=== PATIENT | female | born 1960 | race Caucasian/White ===

== ENCOUNTER 2017-12-04 08:13 | Inpatient (IN) | payer OTHER ==
[~2017-12-04] VITALS: Ht 165.1 cm; Wt 78.1 kg
[~2017-12-04 08:13] MED LIST: AMLODIPINE BESY10 MG PO; ATENOLOL100 MG PO; ATORVASTATIN CA80 MG PO; CALCIUM600 M1 PO; CIPRO250 MG PO; CLONAZEPAM1 MG PO; DESYREL100 MG PO; DULOXETINE HCL60 MG PO; FLONASE SENSIM9.9 ML BOTH NARES; FLUTICASONE PRO60 ML TP; FUROSEMIDE20 MG PO; GABAPENTIN100 MG PO; HUMALOG MI100 UNIT/6 SC; KEFLEX500 MG PO; LAMOTRIGINE150 MG PO; LEVOTHYROXINE50 MCG PO; LISINOPRIL20 MG PO; LO-DOSE ASPIRIN81 M2 PO; REFRESH PLUS1 EACH BOTH EYES; ROXICODONE5 MG PO; ZYRTEC10 M2 PO
[2017-12-04 08:59] LABS: HEMATOCRIT 33.7 % (36.0-46.0); HEMOGLOBIN 11.4 G/DL (11.9-15.5); MCH 32.6 PG (29.0-34.0); MCHC 33.8 G/DL (30.0-36.0); MCV 96.3 FL (83-99); PLATELET COUNT 228 K/uL (156-360); RBC DIS.WIDTH-CV 12.6 % (11.8-14.6); RBC DIS.WIDTH-SD 44.4 % (39-53); WHITE BLOOD COUNT 13.8 K/uL (4.1-10.2)
[2017-12-04 09:07] LABS: APPEARANCE SL.HAZY ((CLEAR)); BILIRUBIN NEGATIVE; BLOOD MODERATE; COLOR YELLOW ((YELLOW)); GLUCOSE (STRIP) >=500; KETONES NEGATIVE; LEUKOCYTES NEGATIVE; NITRITE NEGATIVE; PROTEIN (STRIP) >=500; SPECIFIC GRAVITY 1.007 (1.000-1.030); UROBILINOGEN 0.2 MG/DL (0.2-1.0)
[2017-12-04 09:10] LABS: ALBUMIN 3.1 g/dL (3.2-4.8); CHLORIDE 103 mEq/L (99-109); POTASSIUM 4.9 mEq/L (3.7-5.4); SODIUM 137 mEq/L (136-147)
[2017-12-04 09:12] LABS: TOTAL PROTEIN 6.9 g/dL (6.4-8.3)
[2017-12-04 09:14] LABS: TOTAL BILIRUBIN 0.3 mg/dL (0.0-1.0)
[2017-12-04 09:14] LABS: BACTERIA 3+ /HPF; EPITHELIAL CELLS NONE SEEN /HPF; MUCUS TRACE /LPF; RED BLOOD CELLS 0-5 /HPF (0-5); UCUL ADDED? YES; WHITE BLOOD CELLS NONE SEEN /HPF (0-5)
[2017-12-04 09:16] LABS: ALKALINE PHOSPHATASE 111 IU/L (3-129); CREATININE 5.8 mg/dL (0.6-1.3); GFR ESTIMATE (CALCULATED) 8 mL/min/
[2017-12-04 09:17] LABS: GLUCOSE 234 mg/dL (70-99); UREA NITROGEN (BUN) 71 mg/dL (9-23)
[2017-12-04 09:18] LABS: AST (GOT) 20 IU/L (2-34)
[2017-12-04 09:19] LABS: ALT (GPT) 16 IU/L (3-49)
[2017-12-04 09:20] LABS: TROP-I INTERPRETATION NEGATIVE; TROPONIN-I 0.05 ng/mL (0.0-0.30)
[2017-12-04 10:43] LABS: BASE EXCESS -1.6 mEq/L (-3 to +3); BICARBONATE 24.7 mEq/L (22-26); CARBOXY HGB 1.9 % (0-5); METHEMOGLOBIN 1.5 % (0-1.5); PCO2 48 mm Hg (35-45); PO2 69 mm Hg (80-100); pH 7.32 (7.35-7.45)
[2017-12-04 10:44] LABS: COMMENTS - BLOOD GASES A+C+; DEVICE NC; O2 FLOW 6 L/MIN; SITE LR; TOTAL RESP RATE 12 resp/min
[2017-12-04] MEDS ORDERED: SYMBICORT60 INHALAT IH (11:10)
[2017-12-04] MEDS ORDERED: HUMALOG MI100 UNIT/5 SC ×2 (11:12→11:13)
[2017-12-04 13:18] LABS: HEPATITIS B SURFACE ANTIGEN Nonreactive
[2017-12-04 13:19] LABS: HEPATITIS C ANTIBODY Nonreactive
[2017-12-04 13:20] LABS: ANTI-HEPATITIS B CORE (TOTAL) Nonreactive
[2017-12-04 13:49] LABS: HEPATITIS B SURFACE ANTIBODY EQUIVOCAL
[2017-12-04 15:22] LABS: ANTI-HEPATITIS A VIRUS (IGM) Nonreactive
[2017-12-04 15:23] LABS: ANTI-HEPATITIS B CORE (IGM) Nonreactive
[2017-12-04 17:24] VITALS: BP 129/81
[2017-12-04 19:20] VITALS: BP 181/79
[2017-12-04 23:41] VITALS: BP 158/72
[2017-12-05 03:10] VITALS: BP 162/75
[2017-12-05 04:39] LABS: BASOPHIL (%) 0.4 % (0-1); EOSINOPHIL (%) 1.8 % (0-5); EOSINOPHIL COUNT 0.2 K/uL (0-0.3); HEMOGLOBIN 10.2 G/DL (11.9-15.5); IMMATURE GRANULOCYTE (%) 0.4 % (0.0-0.7); LYMPHOCYTE (%) 14.6 % (15-42); LYMPHOCYTE COUNT 1.5 K/uL (1.0-2.8); MCH 32.5 PG (29.0-34.0); MCV 95.5 FL (83-99); MONOCYTE (%) 7.7 % (3-12); MONOCYTE COUNT 0.8 K/uL (0-0.8); NEUTROPHIL (%) 75.1 % (45-76); NEUTROPHIL COUNT 7.6 K/uL (1.8-6.4); PLATELET COUNT 217 K/uL (156-360); RBC DIS.WIDTH-CV 12.6 % (11.8-14.6); RBC DIS.WIDTH-SD 43.8 % (39-53); RED BLOOD COUNT 3.14 M/uL (3.80-5.20); WHITE BLOOD COUNT 10.1 K/uL (4.1-10.2)
[2017-12-05 05:07] LABS: CHLORIDE 102 mEq/L (99-109); POTASSIUM 4.5 mEq/L (3.7-5.4); SODIUM 138 mEq/L (136-147)
[2017-12-05 05:08] LABS: MAGNESIUM 1.9 mg/dL (1.3-2.7)
[2017-12-05 05:10] LABS: GLUCOSE 167 mg/dL (70-99)
[2017-12-05 05:13] LABS: GFR ESTIMATE (CALCULATED) 12 mL/min/; PHOSPHORUS 3.8 mg/dL (2.5-4.9)
[2017-12-05 05:14] LABS: UREA NITROGEN (BUN) 45 mg/dL (9-23)
[2017-12-05 05:16] LABS: CREATININE 4.2 mg/dL (0.6-1.3)
[2017-12-05 11:08] VITALS: BP 145/67
[2017-12-05 16:00] VITALS: BP 188/84
[2017-12-05 20:00] VITALS: BP 144/74
[2017-12-06] VITALS (9 sets, daily range): BP systolic 130–180; BP diastolic 69–81
[2017-12-06 06:05] LABS: BASOPHIL (%) 0.6 % (0-1); BASOPHIL COUNT 0.1 K/uL (0-0.1); EOSINOPHIL (%) 3.2 % (0-5); EOSINOPHIL COUNT 0.3 K/uL (0-0.3); HEMOGLOBIN 11.5 G/DL (11.9-15.5); IMMATURE GRANULOCYTE (%) 0.4 % (0.0-0.7); LYMPHOCYTE (%) 18.5 % (15-42); LYMPHOCYTE COUNT 1.5 K/uL (1.0-2.8); MCH 31.5 PG (29.0-34.0); MCHC 32.9 G/DL (30.0-36.0); MCV 95.9 FL (83-99); MONOCYTE (%) 9.4 % (3-12); MONOCYTE COUNT 0.8 K/uL (0-0.8); NEUTROPHIL (%) 67.9 % (45-76); NEUTROPHIL COUNT 5.5 K/uL (1.8-6.4); PLATELET COUNT 185 K/uL (156-360); RBC DIS.WIDTH-CV 12.6 % (11.8-14.6); RBC DIS.WIDTH-SD 44.5 % (39-53); RED BLOOD COUNT 3.65 M/uL (3.80-5.20); WHITE BLOOD COUNT 8.1 K/uL (4.1-10.2)
[2017-12-06 06:14] LABS: CHLORIDE 101 MEQ/L (99-109); CREATININE 3.5 MG/DL (0.6-1.3); GFR ESTIMATE (CALCULATED) 14 mL/min/; PHOSPHORUS 4.2 mg/dL (2.5-4.9); POTASSIUM 3.6 MEQ/L (3.7-5.4); SODIUM 139 MEQ/L (136-147); UREA NITROGEN (BUN) 27 mg/dL (9-23)
[2017-12-06 06:20] LABS: GLUCOSE 89 mg/dL (70-99)
[2017-12-06 06:31] LABS: ALBUMIN 3.1 G/DL (3.2-4.8); ALKALINE PHOSPHATASE 90 IU/L (3-129); ALT (GPT) 7 IU/L (3-49); AST (GOT) 19 IU/L (2-34); CHLORIDE 100 MEQ/L (99-109); CREATININE 3.6 MG/DL (0.6-1.3); GFR ESTIMATE (CALCULATED) 14 mL/min/; GLUCOSE 86 mg/dL (70-99); POTASSIUM 3.9 MEQ/L (3.7-5.4); SODIUM 139 MEQ/L (136-147); TOTAL BILIRUBIN 0.3 MG/DL (0.0-1.0); TOTAL PROTEIN 6.6 G/DL (6.4-8.3); UREA NITROGEN (BUN) 26 mg/dL (9-23)
[2017-12-06 12:59] LABS: HEMOGLOBIN A1c (GLYCOHEMOGLOB) 7.6 % (Below 5.7)
[2017-12-07 05:21] VITALS: BP 106/51
[2017-12-07 05:45] LABS: BASOPHIL (%) 0.4 % (0-1); EOSINOPHIL (%) 2.7 % (0-5); EOSINOPHIL COUNT 0.2 K/uL (0-0.3); HEMATOCRIT 32.6 % (36.0-46.0); HEMOGLOBIN 10.7 G/DL (11.9-15.5); IMMATURE GRANULOCYTE (%) 0.4 % (0.0-0.7); LYMPHOCYTE (%) 22.2 % (15-42); LYMPHOCYTE COUNT 1.6 K/uL (1.0-2.8); MCH 31.7 PG (29.0-34.0); MCHC 32.8 G/DL (30.0-36.0); MCV 96.4 FL (83-99); MONOCYTE (%) 8.6 % (3-12); MONOCYTE COUNT 0.6 K/uL (0-0.8); NEUTROPHIL (%) 65.7 % (45-76); NEUTROPHIL COUNT 4.9 K/uL (1.8-6.4); PLATELET COUNT 191 K/uL (156-360); RBC DIS.WIDTH-CV 12.9 % (11.8-14.6); RBC DIS.WIDTH-SD 45.9 % (39-53); RED BLOOD COUNT 3.38 M/uL (3.80-5.20); WHITE BLOOD COUNT 7.4 K/uL (4.1-10.2)
[2017-12-07 06:18] LABS: ALBUMIN 2.8 G/DL (3.2-4.8); ALKALINE PHOSPHATASE 72 IU/L (3-129); ALT (GPT) 6 IU/L (3-49); AST (GOT) 15 IU/L (2-34); CHLORIDE 101 MEQ/L (99-109); CREATININE 4.2 MG/DL (0.6-1.3); GFR ESTIMATE (CALCULATED) 12 mL/min/; GLUCOSE 145 mg/dL (70-99); POTASSIUM 3.4 MEQ/L (3.7-5.4); SODIUM 139 MEQ/L (136-147); TOTAL BILIRUBIN 0.3 MG/DL (0.0-1.0); TOTAL PROTEIN 6.3 G/DL (6.4-8.3); UREA NITROGEN (BUN) 30 mg/dL (9-23)
[2017-12-07 07:20] VITALS: BP 131/63
[2017-12-07 15:00] VITALS: BP 126/76
[2017-12-07 20:33] VITALS: BP 114/54
[2017-12-07 23:28] VITALS: BP 106/53
[2017-12-08 04:55] VITALS: BP 109/55
[2017-12-08 05:59] LABS: CHLORIDE 98 MEQ/L (99-109); CREATININE 3.6 MG/DL (0.6-1.3); GFR ESTIMATE (CALCULATED) 14 mL/min/; GLUCOSE 168 mg/dL (70-99); PHOSPHORUS 4.6 mg/dL (2.5-4.9); POTASSIUM 3.9 MEQ/L (3.7-5.4); SODIUM 134 MEQ/L (136-147); UREA NITROGEN (BUN) 20 mg/dL (9-23)
[2017-12-08 07:10] VITALS: BP 132/62
[2017-12-08 11:55] VITALS: BP 129/61
[2017-12-08 15:10] VITALS: BP 135/72
[2017-12-08 20:31] VITALS: BP 159/77
[2017-12-09 00:16] VITALS: BP 149/67
[2017-12-09 04:59] VITALS: BP 150/69
[2017-12-09 05:18] LABS: BASOPHIL (%) 0.2 % (0-1); EOSINOPHIL (%) 0.1 % (0-5); HEMATOCRIT 32.1 % (36.0-46.0); HEMOGLOBIN 10.6 G/DL (11.9-15.5); IMMATURE GRANULOCYTE (%) 0.6 % (0.0-0.7); LYMPHOCYTE (%) 9.2 % (15-42); LYMPHOCYTE COUNT 0.9 K/uL (1.0-2.8); MCH 31.1 PG (29.0-34.0); MCV 94.1 FL (83-99); MONOCYTE COUNT 0.4 K/uL (0-0.8); NEUTROPHIL (%) 85.9 % (45-76); NEUTROPHIL COUNT 8.7 K/uL (1.8-6.4); PLATELET COUNT 244 K/uL (156-360); RBC DIS.WIDTH-CV 12.2 % (11.8-14.6); RBC DIS.WIDTH-SD 42.3 % (39-53); RED BLOOD COUNT 3.41 M/uL (3.80-5.20); WHITE BLOOD COUNT 10.2 K/uL (4.1-10.2)
[2017-12-09 05:48] LABS: ALKALINE PHOSPHATASE 93 IU/L (3-129); CHLORIDE 94 MEQ/L (99-109); SODIUM 129 MEQ/L (136-147); TOTAL BILIRUBIN 0.3 MG/DL (0.0-1.0); TOTAL PROTEIN 6.1 G/DL (6.4-8.3)
[2017-12-09 05:50] LABS: ALT (GPT) 17 IU/L (3-49); AST (GOT) 24 IU/L (2-34); CREATININE 4.3 MG/DL (0.6-1.3); GFR ESTIMATE (CALCULATED) 11 mL/min/; GLUCOSE 255 mg/dL (70-99); POTASSIUM 5.2 MEQ/L (3.7-5.4); UREA NITROGEN (BUN) 34 mg/dL (9-23)
[2017-12-09 08:38] VITALS: BP 142/64
[2017-12-09 11:29] VITALS: BP 138/69
[2017-12-09] MEDS ORDERED: NICOTINE PATCH1 EAC1 TD (13:51)
[2017-12-09] MEDS ORDERED: AUGMENTIN500 MG PO (13:51)
[2017-12-09] MEDS ORDERED: DESYREL100 MG PO (13:51)
[2017-12-09] MEDS ORDERED: SPIRIVA RESPIMAT4 GM IH (13:51)
[2017-12-09] MEDS ORDERED: PREDNISONE10 MG PO (13:51)
[2017-12-09] MEDS ORDERED: NOVOLOG 10100 UNITS/ SC (14:23)
[2017-12-09] MEDS ORDERED: 1ST TIER UNILE1 EAC1 MC (14:36)
[2017-12-09] MEDS ORDERED: GLUCOMETER MC (14:36)
[2017-12-09] MEDS ORDERED: INSULIN SYRING1 EA53 MC (14:36)
[2017-12-09] MEDS ORDERED: LANTUS 10100 UNITS/ SC (17:21)
== END 2017-12-09 19:15 | disposition home health service (06) | DRG 871 ==
LOC: EME 08:13 → EDOF 10:21 → 4EAST 10:21 → ENRESERV 10:27 → CANRESERV 10:27 → EDOF 10:39 → ENRESERV 10:39 → EDOF 10:39 → ENRESERV 12:28 → 4EAST 16:19
PROVIDERS: Hospitalist; Internal Medicine Nephrology; Nurse Practitioner Family
DX: A41.9 Sepsis, unspecified organism (principal); J18.9 Pneumonia, unspecified organism; J96.02 Acute respiratory failure with hypercapnia; J96.01 Acute respiratory failure with hypoxia; E11.649 Type 2 diabetes mellitus with hypoglycemia without coma; E11.65 Type 2 diabetes mellitus with hyperglycemia; J43.9 Emphysema, unspecified; I13.2 Hypertensive heart and chronic kidney disease with heart failure and with stage 5 chronic kidney disease, or end stage renal disease; E11.22 Type 2 diabetes mellitus with diabetic chronic kidney disease; E11.21 Type 2 diabetes mellitus with diabetic nephropathy; I50.9 Heart failure, unspecified; G20 Parkinson's disease; N18.5 Chronic kidney disease, stage 5; D64.9 Anemia, unspecified; N04.9 Nephrotic syndrome with unspecified morphologic changes; E78.5 Hyperlipidemia, unspecified; E11.42 Type 2 diabetes mellitus with diabetic polyneuropathy; F17.210 Nicotine dependence, cigarettes, uncomplicated; Z99.2 Dependence on renal dialysis; Z83.3 Family history of diabetes mellitus; Z79.899 Other long term (current) drug therapy; Z79.51 Long term (current) use of inhaled steroids; Z79.4 Long term (current) use of insulin
CPT/HCPCS: 36415; 36600; 71045; 71046; 80048; 80053; 80069; 80074; 81003; 82803; 82948; 83036; 83605; 83735; 84100; 84484; 85025; 85027; 86704; 86705; 86706; 86709; 86803; 87040; 87070; 87086 GA; 87205; 87340; 87449; 87502; 93005; 93306; 94010; 94640; 94640 76; 94760; 94799; 99202; 99281; 99285; C1750; C1894; J0295; J0360; J0456; J0690; J0696; J1644; J1815; J1940; J7030; J7050; J7512; S0020

== ENCOUNTER 2018-01-29 07:39 | Day surgery (SDC) | payer OTHER ==
[~2018-01-29] VITALS: Ht 165.1 cm; Wt 79.4 kg
[~2018-01-29 07:39] MED LIST changes: +1ST TIER UNILE1 EAC1 MC; +AUGMENTIN500 MG PO; +AZOR 5/20 MG1 TABLET PO; +CYMBALTA60 MG PO; +GLUCOMETER MC; +HUMALOG MI100 UNIT/5 SC; +INSULIN SYRING1 EA53 MC; +KLONOPIN1 MG PO; +LAMICTAL150 M1 PO; +LANTUS 10100 UNITS/ SC; +LANTUS 3 M100 UNITS1 SC; +LIPITOR80 MG PO; +NEURONTIN100 MG PO; +NICODERM CQ1 EAC2 TD; +NICOTINE PATCH1 EAC1 TD; +NOVOLOG 10100 UNITS/ SC; +NOVOLOG MI100 UNIT/2 SC; +OXAYDO5 MG PO; +PREDNISONE10 MG PO; +PROAMATINE5 MG PO; +RENVELA800 MG PO; +SPIRIVA RESPIMAT4 GM IH; +SPIRIVA18 MCG IH; +SYMBICORT60 INHALAT IH; +SYNTHROID50 MCG PO; +TENORMIN100 MG PO
[2018-01-29 08:19] VITALS: BP 116/58
[2018-01-29 08:30] LABS: HEMOGLOBIN 10.3 G/DL (11.9-15.5); MCH 31.8 PG (29.0-34.0); MCHC 33.2 G/DL (30.0-36.0); MCV 95.7 FL (83-99); PLATELET COUNT 161 K/uL (156-360); RBC DIS.WIDTH-CV 13.6 % (11.8-14.6); RED BLOOD COUNT 3.24 M/uL (3.80-5.20); WHITE BLOOD COUNT 5.9 K/uL (4.1-10.2)
[2018-01-29 09:00] LABS: CHLORIDE 100 MEQ/L (99-109); CREATININE 4.3 MG/DL (0.6-1.3); GFR ESTIMATE (CALCULATED) 11 mL/min/; GLUCOSE 123 mg/dL (70-99); POTASSIUM 3.6 MEQ/L (3.7-5.4); SODIUM 140 MEQ/L (136-147); UREA NITROGEN (BUN) 42 mg/dL (9-23)
[2018-01-29 13:20] VITALS: BP 102/56
[2018-01-29 14:24] VITALS: BP 112/59
== END 2018-01-29 14:25 | disposition home or self-care (01) ==
LOC: SDC
PROVIDERS: Surgery
DX: I12.0 Hypertensive chronic kidney disease with stage 5 chronic kidney disease or end stage renal disease (principal); E11.22 Type 2 diabetes mellitus with diabetic chronic kidney disease; N18.6 End stage renal disease; Z99.2 Dependence on renal dialysis; Z87.891 Personal history of nicotine dependence; Z79.4 Long term (current) use of insulin; E78.00 Pure hypercholesterolemia, unspecified; I25.10 Atherosclerotic heart disease of native coronary artery without angina pectoris; J44.9 Chronic obstructive pulmonary disease, unspecified; E07.9 Disorder of thyroid, unspecified
CPT/HCPCS: 80048; 82948; 85027; 87641; J0690; J1644; J2250; J2405; J2720; S0020

== ENCOUNTER 2018-02-23 18:31 | Observation (INO) | payer OTHER ==
[~2018-02-23] VITALS: Ht 165.1 cm; Wt 85.9 kg
[2018-02-23 19:25] LABS: HEMATOCRIT 27.3 % (36.0-46.0); HEMOGLOBIN 9.5 G/DL (11.9-15.5); MCH 33.1 PG (29.0-34.0); MCHC 34.8 G/DL (30.0-36.0); MCV 95.1 FL (83-99); RBC DIS.WIDTH-CV 13.7 % (11.8-14.6); RBC DIS.WIDTH-SD 45.7 % (39-53); RED BLOOD COUNT 2.87 M/uL (3.80-5.20); WHITE BLOOD COUNT 6.7 K/uL (4.1-10.2)
[2018-02-23 19:28] LABS: PLATELET COUNT 254 K/uL (156-360)
[2018-02-23 19:32] LABS: ALBUMIN 3.9 g/dL (3.2-4.8); CHLORIDE 92 mEq/L (99-109); POTASSIUM 4.5 mEq/L (3.7-5.4); SODIUM 127 mEq/L (136-147)
[2018-02-23 19:34] LABS: GLUCOSE 180 mg/dL (70-99)
[2018-02-23 19:35] LABS: TOTAL PROTEIN 7.2 g/dL (6.4-8.3)
[2018-02-23 19:36] LABS: TOTAL BILIRUBIN 0.4 mg/dL (0.0-1.0)
[2018-02-23 19:38] LABS: ALKALINE PHOSPHATASE 140 IU/L (3-129); CREATININE 6.3 mg/dL (0.6-1.3); GFR ESTIMATE (CALCULATED) 7 mL/min/
[2018-02-23 19:39] LABS: UREA NITROGEN (BUN) 59 mg/dL (9-23)
[2018-02-23 19:40] LABS: AST (GOT) 29 IU/L (2-34)
[2018-02-23 19:41] LABS: ALT (GPT) 17 IU/L (3-49)
[2018-02-23 19:42] LABS: LIPASE 11 U/L (1.0-51.0)
[2018-02-23 21:22] LABS: APPEARANCE CLEAR ((CLEAR)); BILIRUBIN NEGATIVE; BLOOD SMALL; COLOR YELLOW ((YELLOW)); GLUCOSE (STRIP) 50; KETONES NEGATIVE; LEUKOCYTES NEGATIVE; NITRITE NEGATIVE; PROTEIN (STRIP) 100; SPECIFIC GRAVITY 1.008 (1.000-1.030); UROBILINOGEN 0.2 MG/DL (0.2-1.0)
[2018-02-23 21:25] LABS: BACTERIA RARE /HPF; EPITHELIAL CELLS RARE /HPF; MUCUS NONE SEEN /LPF; RED BLOOD CELLS 0-5 /HPF (0-5); UCUL ADDED? NO; WHITE BLOOD CELLS 0-5 /HPF (0-5)
[2018-02-23 21:31] LABS: AMPHETAMINE NEGATIVE (500 ng/mL); BARBITURATES NEGATIVE (200 ng/mL); BENZODIAZEPINES NEGATIVE (150 ng/mL); BUPRENORPHINE NEGATIVE (10 ng/mL); COCAINE NEGATIVE (150 ng/mL); METHADONE NEGATIVE (200 ng/mL); METHAMPHETAMINE NEGATIVE (500 ng/mL); OPIATES (MORPHINE) NEGATIVE (100 ng/mL); OXYCODONE PRESUMPTIVE POSITIVE (100 ng/mL); PHENCYCLIDINE NEGATIVE (25 ng/mL); PROPOXYPHENE NEGATIVE (300 ng/mL); THC CANNABINOIDS NEGATIVE (50 ng/mL); TRICYCLIC ANTIDEPRESSANTS NEGATIVE (300 ng/mL)
[2018-02-23] MEDS ORDERED: TYLENOL EXTRA500 MG PO (22:12)
[2018-02-24 00:35] VITALS: BP 153/71
[2018-02-24 02:49] LABS: HDL CHOLESTEROL 35 MG/DL (Desirable>=50); LDL CHOLESTEROL 56 mg/dL (Desirable<100); NON-HDL CHOLESTEROL 91 mg/dL (Desirable<160); TOTAL CHOLESTEROL 126 mg/dL (Desirable<200); TRIGLYCERIDES 176 MG/DL (Normal: <150)
[2018-02-24 04:15] VITALS: BP 165/77
[2018-02-24 08:26] VITALS: BP 165/74
[2018-02-24 10:19] LABS: HEMOGLOBIN A1c (GLYCOHEMOGLOB) 6.6 % (Below 5.7)
[2018-02-24 10:26] LABS: HEPATITIS B SURFACE ANTIGEN Nonreactive
[2018-02-24 15:11] VITALS: BP 124/74
== END 2018-02-24 15:18 | disposition home or self-care (01) ==
LOC: EME 18:31 → 4SOUTH 22:18 → EDOF 22:18 → ENRESERV 22:20 → 4SOUTH 02-24 00:08
PROVIDERS: Internal Medicine Nephrology; Nurse Practitioner Adult Health; Physician Assistant
PROC: 5A1D70Z Performance of Urinary Filtration, Intermittent, Less than 6 Hours Per Day (ICD-10-PCS; principal; 2018-02-24)
DX: G45.9 Transient cerebral ischemic attack, unspecified (principal); E87.1 Hypo-osmolality and hyponatremia; I13.2 Hypertensive heart and chronic kidney disease with heart failure and with stage 5 chronic kidney disease, or end stage renal disease; I50.9 Heart failure, unspecified; E11.22 Type 2 diabetes mellitus with diabetic chronic kidney disease; N18.6 End stage renal disease; Z99.2 Dependence on renal dialysis; J44.9 Chronic obstructive pulmonary disease, unspecified; D63.1 Anemia in chronic kidney disease; E11.21 Type 2 diabetes mellitus with diabetic nephropathy; E11.40 Type 2 diabetes mellitus with diabetic neuropathy, unspecified; Z79.4 Long term (current) use of insulin
CPT/HCPCS: 70450; 70551; 71046; 80053; 80061; 81003; 83036; 83690; 85027; 87040; 87340; 93005; 93880; 94640; 99281; 99285; G0378; J1644

== ENCOUNTER 2018-04-01 06:36 | Day surgery (SDC) | payer OTHER ==
[~2018-04-01] VITALS: Ht 165.1 cm; Wt 77.1 kg
[~2018-04-01 06:36] MED LIST changes: +TYLENOL EXTRA500 MG PO
== END 2018-04-01 09:25 | disposition home or self-care (01) ==
LOC: CATH 06:36
PROVIDERS: Surgery
PROC: 057Y3ZZ Dilation of Upper Vein, Percutaneous Approach (ICD-10-PCS; principal; 2018-04-01)
DX: T82.858A Stenosis of other vascular prosthetic devices, implants and grafts, initial encounter (principal); I12.0 Hypertensive chronic kidney disease with stage 5 chronic kidney disease or end stage renal disease; N18.6 End stage renal disease; Z99.2 Dependence on renal dialysis; E78.5 Hyperlipidemia, unspecified; M19.90 Unspecified osteoarthritis, unspecified site; J44.9 Chronic obstructive pulmonary disease, unspecified; E07.9 Disorder of thyroid, unspecified; Z87.891 Personal history of nicotine dependence; Y83.2 Surgical operation with anastomosis, bypass or graft as the cause of abnormal reaction of the patient, or of later complication, without mention of misadventure at the time of the procedure
CPT/HCPCS: 82948; 87641; C1725; C1769; C1894; J1644; J2250; J3010

== ENCOUNTER → 2018-04-25 | Outpatient (CLI) | payer OTHER | END | disposition home or self-care (01) | LOC: AMB 04-15 09:30 | PROC: 02PYX3Z Removal of Infusion Device from Great Vessel, External Approach (ICD-10-PCS; principal; 2018-04-25) | DX: Z45.2 Encounter for adjustment and management of vascular access device (principal) ==